=== PATIENT | male | born 1975 | race Caucasian/White ===

== ENCOUNTER 2017-05-02 08:10 | Emergency (ER) | payer OTHER ==
[2017-05-02 08:14] VITALS: BP 134/83; PULSE 78; RESP 18; TEMP 97.9; O2SAT 96
--- NOTE | 2017-05-02 08:29 | EDPHY ---
H & P Time Seen by Provider: 05/02/17 08:28 HPI/ROS: Chief complaint. Rectal pain HPI. 41-year-old male with history of hemorrhoids. He has had diarrhea over the past 3-4 weeks and was diagnosed by his physician in [place] with food poisoning. He recently drove from [place] and has had increased rectal pain and swelling to his bottom. He was seen at urgent care yesterday and had an incision and drainage which initially felt better but now he feels that the swelling is worsened pain is worse again. He states the hemorrhoid feels large inflamed today. No blood in his stool. He is concerned about having bowel movement because of pain with stool passage. He is returning to [place] in 2 days. ROS Constitutional. no fever/chills, no weakness Eyes. no problems with vision ENT. no sore throat, no nasal drainage Cardiovascular. no chest pain Respiratory. no shortness of breath, no cough Abdominal. no abdominal pain, no nausea/vomiting, no diarrhea. Rectal pain . no problems urinating MS. no calf pain/swelling, no neck/back pain, no joint pain Skin. no rash Lymph. no swollen glands Neuro. no headache, no dizziness, no difficulty walking or with speech Past Medical/Surgical History: Gastroenteritis and hemorrhoids Social History: , nonsmoker, no alcohol Smoking Status: Never smoked Physical Exam: General Appearance: Alert well-developed male moderate distress vital signs stable Eyes: Pupils equal and round no pallor or injection. ENT, Mouth: Mucous membranes are moist. Respiratory: There are no retractions, lungs are clear to auscultation. Cardiovascular: Regular rate and rhythm. Gastrointestinal: Abdomen is soft and nontender, no masses, bowel sounds normal. Rectal exam shows a large thrombosed hemorrhoid Neurological: Awake and alert, sensory and motor exams grossly normal. Skin: Warm and dry, no rashes. Musculoskeletal: Neck is supple nontender. Extremities symmetrical, full range of motion. Psychiatric: Patient is oriented X 3, there is no agitation. Constitutional: Initial Vital Signs Temperature (C) 36.6 C 05/02/17 08:11 Heart Rate 78 05/02/17 08:11 Respiratory Rate 18 05/02/17 08:11 Blood Pressure 134/83 H 05/02/17 08:11 O2 Sat (%) 96 05/02/17 08:11 O2 Delivery Mode Room Air,Humidified Allergies/Adverse Reactions: No Known Allergies Allergy (Unverified 05/02/17 08:14) Home Medications: Medication Instructions Recorded Ibuprofen 05/02/17 [place] 5/325 (*) 05/02/17 oxyCODONE/APAP 5/325 [Percocet 1 tab PO Q4-6PRN PRN #10 tab 05/02/17 5/325] Medical Decision Making Procedures: Procedure hemorrhoid incision and drainage--with patient in the prone position and good exposure the hemorrhoid is infiltrated 1% lidocaine with epinephrine. After good anesthesia is obtained a fish mouth incision is placed in the hemorrhoid. Good bleeding but only small clot. It is probed with forceps to break up and try to remove further clots. Patient tolerates the procedure well ED Course/Re-evaluation: Re-evaluation patient is stable and feels better The patient, his , and I discussed treatment plan including criteria for return and to follow-up and further evaluation. They expressed understanding and agreement Differential Diagnosis: Thrombosed external hemorrhoid however not too much clot. I considered internal hemorrhoid as well. Departure - Departure Disposition: Home, Routine, Self-Care Clinical Impression: Hemorrhoid thrombosis Condition: Good Instructions: Hemorrhoids (ED) Additional Instructions: Soaking in a tub or Sitz bath as 3 times daily next 48 hr. Stool softeners especially while taking pain medication such as MiraLax, Senokot, rosi Colace available from the grocery store. Percocet for pain however use cautiously as can cause constipation. Ibuprofen 600 mg every 6 hr for discomfort. Return for worsening symptoms. Follow up with your regular physician on return to [place] Referrals: NONE *PRIMARY CARE P,. [Primary Care Provider] - As per Instructions Prescriptions: oxyCODONE/APAP 5/325 [Percocet 5/325] 1 tab PO Q4-6PRN PRN #10 tab PRN Reason: Pain, Moderate
== END 2017-05-02 10:33 | disposition home or self-care (01) ==
PROC: 06BY0ZC Excision of Hemorrhoidal Plexus, Open Approach (ICD-10-PCS; principal; 2017-05-02)
DX: K64.5 Perianal venous thrombosis (principal)